=== PATIENT | female | born 1955 | race Caucasian/White ===

== ENCOUNTER 2018-04-08 08:22 | Emergency (ER) | payer OTHER ==
--- OUTSIDE RECORDS SUMMARY | 2018-04-08 08:30 | XMS REPORT | Continuity of Care Document ---
:1955 External Reference #:[id number] Author Name Tasia Montalvo MD Address [address] [place] [address] Care Team Providers Name Role Phone Tasia Montalvo MD Care Team Information Product Delivery Specialist Unavailable Payers Date Identification Numbers Payment Provider Subscriber Policy Number: [id number] Lifetime Benefit Solns Lola Aly PayID: [facility] [address] [address] [place] [address] Advance Directives Description No Information Available Problems Description No Information Family History Date Family Member(s) Observation Comments Father Parkinson's Disease : (age 93 Years) Father due to Parkinson's Mother Good Health First Daughter Good Health Social History Type Date Description Comments Sex Unknown Education Highest Level Completed Master's Degree Marital Status Lives With Spouse Diet Healthy, Well Balanced 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 Hand Dominance RIGHT-handed Abuse No history of abuse Hobbies Traveling Blood Donor Patient is not a blood donor ETOH Use Consumes 1 glass of wine per day Tobacco Use Start: Unknown Patient has never smoked Smoking Status Reviewed: 03/23/18 Patient has never smoked Allergies, Adverse Reactions, Alerts Description No Known Drug Allergies Medications Medication Date Status Form Strength Qnty SIG Indications Ordering Provider Vitamin D-3 Active Capsules 1000Unit 30caps 1 by Cortez Montalvo MD every day Multivitamin Active Tablets 90tabs 1 by Shelby Montalvo MD every day Immunizations CPT Code Status Date Vaccine Lot # [id number] Given 11/01/2017 Shingrix (Shingles) Zoster Vaccine HZV, Recombinant, Subunit, Adj [id number] Refused 01/27/2018 Flu Vaccine NOS Vital Signs Date Vital Result Comment 03/23/2018 11:07am Weight 159.00 lb Heart Rate 68 /min BP Systolic 112 mmHg BP Diastolic 68 mmHg Respiratory Rate 16 /min Height 68 inches 5'8" O2 % BldC Oximetry 98 % Ra BMI (Body Mass Index) 24.2 kg/m2 03/21/2017 10:49am Weight 166.00 lb Heart Rate 72 /min BP Systolic 102 mmHg BP Diastolic 60 mmHg Respiratory Rate 18 /min Height 68 inches 5'8" 03/17/16 BMI (Body Mass Index) 25.2 kg/m2 03/17/2016 11:07am Weight 167.00 lb Heart Rate 60 /min BP Systolic 110 mmHg BP Diastolic 60 mmHg Respiratory Rate 18 /min Height 68 inches 5'8" 03/17/16 BMI (Body Mass Index) 25.4 kg/m2 Results Test Date Facility Test Result H/L Range Note Laboratory test Lab [place] [facility] 1 finding 8 [phone] [facility] <SEE NOTE> [facility] test [facility] Pap Smear Thin SEE NOTE 2 finding 8 Prep Lipid [facility] Cholesterol 217 mg/dL High 50-199 3 7 Triglycerides 60 mg/dL 30-200 HDL 90 mg/dL High 35-85 4 Chol/ HDL Ratio 2.4 ratio Low 3.7-5.6 VLDL 12 mg/dL 2-29 LDL (Calc) 115 mg/dL High 20-99 5 Laboratory test 03/17/2016 [facility] Hepatitis C NONREACTIVE Nonreactive finding Virus Antibody Comprehensive 03[facility]17[facility]2016 [facility] Sodium 139 mmol/L 134-142 Metabolic (CMP) Potassium 4.0 mmol/L 3.5-5.2 Chloride 101 mmol/L 97-109 Carbon Dioxide 33 mmol/L 24-34 Glucose 83 mg/dL 70-105 BUN 12 mg/dL 6-26 Creatinine 0.7 mg/dL 0.5-1.4 Calcium 9.8 mg/dL 8.5-10.2 Total Protein 7.4 g/dL 6.0-8.0 Albumin 4.7 g/dL 3.6-4.9 Globulin 2.7 g/dL 2.0-3.5 A/G Ratio 1.7 Ratio 1.0-2.2 Total Bilirubin 0.7 mg/dL 0.1-1.3 Alkaline Phosphatase 55 U/L 24-140 Alt 19 U/L 3-42 Ast 21 U/L 8-42 Anion Gap 9 mmol/L 6-14 Denice Egfr >60 >60 6 Non Denice Egfr >60 >60 7 Laboratory test finding 03/17/2016 [facility] TSH 0.79 uIU/mL 0.35-4.94 CBC With Auto Diff 03/17/2016 [facility] WBC 5.9 K/uL 4.1-11.0 RBC 4.26 M/uL 4.00-5.40 Hemoglobin 13.0 gm/dL 12.0-16.0 Hematocrit 39.2 % 36.0-47.0 MCV 92.0 fL 80.0-97.0 MCH 30.6 pg 27.0-32.0 MCHC 33.2 g/dL 32.0-36.0 RDW 12.9 % 11.5-14.5 PLT Count 234 K/ul 140-400 Neutrophil 55.6 % 35.0-75.0 Lymphocyte 32.2 % 16.0-52.0 Monocyte 8.2 % 2.0-10.0 Eosinophil 3.5 % 0.0-5.0 Basophil 0.5 % 0.0-4.0 Abs Neutrophils 3.3 K/uL 2.1-8.0 Abs Lymphocytes 1.9 K/uL 0.8-5.5 Abs Monocytes 0.5 K/uL 0.1-1.0 Abs Eosinophils 0.2 K/uL 0.0-0.5 Abs Basophils 0.0 K/uL 0.0-0.3 1 [place] [address] Amplified Molecular High Risk HPV Test Patient Name:LOLA ALY Patient :1955 Ordering Physician:TASIA MONTALVO MD Accession Number [id number] Specimen(s) Received A: High Risk HPV Thin Prep Cervical / Endocervical Pap Smear - One Vial Other Case Numbers: [id number] Diagnosis RISK GROUPS RESULTS High Risk NEGATIVE Tested for HPV Types (16, 18, 31, 33, 35, 39, 45, 51, 52, 56, 58, 59, 66, 68) Reported: 03/24/2017 09:56 Electronically Signed Out By Yoli Woods shivam Mckenna 2 [facility]. [facility] [place] [address] CYTOLOGY REPORT Source of Specimen(s): Thin Prep Cervical / Endocervical Pap Smear - One Vial Date of Last Menstrual Period: 5 yrs ago Menstrual History: Post-menopausal Other Clinical Conditions: Last Pap Smear: 2013 normal HPV ASSAY REQUESTED Specimen Adequacy SATISFACTORY FOR EVALUATION PRESENCE OF ENDOCERVICAL/TRANSFORMATION ZONE COMPONENT General Categorization NEGATIVE FOR INTRAEPITHELIAL LESION OR MALIGNANCY Interpretation NEGATIVE FOR INTRAEPITHELIAL LESION OR MALIGNANCY Atrophy Comment HPV testing will be performed and a separate report will be issued. Reported: 03/23/2017 13:07 Electronically Signed Out By Sally CARTER(ASCP) lgs ICD9 Code: Z01.419 Unless otherwise specified, testing performed by [facility] [address] [address] 3 today 4 Per NCEP ATP III Guidelines: Results lower than 40 mg/dL are suggestive of increased risk for coronary artery disease. Results > or=to 60 mg/dL are considered a negative risk factor. 5 Per NCEP ATP III Guidelines: Normal Population <130 Patients with medical conditions: CHD/DM Optimal: <100 Borderline high: 130-159 High: 160-189 Very high: >189 6 Concerning GFR Guidelines for Americans: Normal function or mild renal disease, if clinically at risk: >/=60 mL/min Moderately decreased: 30-59 Severely decreased: 15-29 Renal failure: <15 7 Concerning GFR Guidelines: Normal function or mild renal disease, if clinically at risk: >/=60 mL/min Moderately decreased: 30-59 Severely decreased: 15-29 Renal failure: <15 Glomerular Filtration Rate (GFR) is estimated based on the MDRD equation, which assumes a steady state for creatinine as recommended by the National Kidney Disease Education Program in conjunction with the National Institutes of Health and the National Kidney Foundation. Clinical conditions in which it may be necessary to measure GFR by using clearance methods include extremes of age and body size, severe malnutrition or obesity, diseases of skeletal muscle, paraplegia or quadriplegia, vegetarian diet, rapidly changing kidney function, and calculation of the dose of potentially toxic drugs that are excreted by the kidneys. Procedures Date Code Description Status 03/23/2018 14526 Brief Emotional/Behav Assessment W/ Scoring Doc Per Completed Standard Inst 03/21/2017 11582 Measure Blood Oxygen Level Single Determination Completed 03/21/2017 69248366 Mammogram Completed 03/17/2016 10402 Bone Density Study (Dexa) Axial Skeleton Completed (Hips,Pelvis,Spine) 03/17/2016 681803340 Bone Mineral Density Test Completed 08/08/2013 46879797 Mammogram Completed 12/17/2010 31986607 Colonoscopy Completed Encounters Type Date Location Provider Dx Diagnosis Office Visit 03/21/2017 [facility] Tasia Montalvo MD Z01.419 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 (general) (routine) w/o abn findings Office Visit 03/17/2016 [facility] Tasia Montalvo MD Z00.00 Encntr for general 11:00a adult medical exam w/o abnormal findings Z13.220 Encounter for screening for lipoid disorders Z11.59 Encounter for screening for other viral diseases Z12.31 Encntr screen mammogram for malignant neoplasm of breast N95.1 Menopausal and female climacteric states R63.5 Abnormal weight gain Plan of Treatment Future Appointment(s):04/10/2018 9:25 am - Schedule, Laboratory at [facility]2019 10:30 am - Tasia Montalvo MD at [facility]03/23/2018 - Tasia Montalvo MDZ01.419 Encounter for gynecological examination (general) (routine)New Labs:[facility], Scheduled: 04/10/18Comments:pap with HPV testing done. If normal, will repeat in 1-5 years. will need an annual physical with breast exam.Follow up:fasting labs soon 1 year fye - no papZ13.31 Encounter for screening for depressionComments:screening for depression is negative PHQ-2=0Z12.31 Encounter for screening mammogram for malignant neoplasm ofNew Xrays:Mammogram Screening, Bilateral Incl CAD When Performe, Scheduled: 04/10/18Comments:schedule mammoFollow up:mammogram due now
[2018-04-08 08:34] VITALS: BP 123/68
--- NOTE | 2018-04-08 08:48 | UC ---
Shoulder Pain HPI - HPI Summary HPI Summary: Pt c/o left shoulder pain and decrease in ROM after slipping on ice last evening from standing height with left arm stretched out. - History of Current Complaint Chief Complaint: UCGeneralIllness Stated Complaint: LEFT ARM INJURY S/P FALL Time Seen by Provider: 04/08/18 08:30 Hx Obtained From: Patient ?: No Onset/Duration: Sudden Onset, Lasting Hours Timing: Constant Severity Initially: Moderate Severity Currently: Moderate Pain Intensity: 10 Character: Dull, Aching, Stiffness Aggravating Factor(s): Movement Alleviating Factor(s): Rest Associated Signs And Symptoms: Positive: Negative Related History: Dominant Hand Right, Immobility - Risk Factors Non-Orthopedic Risk Factor: Negative DVT Risk Factors: Negative Septic Arthritis Risk Factor: Negative - Allergies/Home Medications Allergies/Adverse Reactions: Allergies Allergy/AdvReac Type Severity Reaction Status Date / Time No Known Allergies Allergy Verified 01/06/16 10:09 PMH/Surg Hx/FS Hx/Imm Hx Previously Healthy: Yes - Surgical History Surgical History: Yes Surgery Procedure, Year, and Place: FALLOPIAN TUBES REMOVED - Family History Known Family History: Positive: Hypertension - Social History Occupation: Employed Full-time Lives: With Family Alcohol Use: Daily Alcohol Amount: glass of wine a night Substance Use Type: None Smoking Status (MU): Never Smoked Tobacco Have You Smoked in the Last Year: No Review of Systems All Other Systems Reviewed And Are Negative: Yes Constitutional: Positive: Negative Skin: Positive: Negative Eyes: Positive: Negative ENT: Positive: Negative Respiratory: Positive: Negative Cardiovascular: Positive: Negative Gastrointestinal: Positive: Negative Genitourinary: Positive: Negative Motor: Positive: Decreased ROM - left shouler Neurovascular: Positive: Negative Musculoskeletal: Positive: Arthralgia, Decreased ROM, Myalgia Neurological: Positive: Negative Psychological: Positive: Negative Is Patient Immunocompromised?: No Physical Exam Triage Information Reviewed: Yes Appearance: Pain Distress Vital Signs: Initial Vital Signs Temp 98.7 F 04/08/18 08:30 Pulse 80 04/08/18 08:30 Resp 18 04/08/18 08:30 BP 123/68 04/08/18 08:30 Pulse Ox 100 04/08/18 08:30 Vital Signs Reviewed: Yes Eye Exam: Normal ENT Exam: Normal Dental Exam: Normal Neck exam: Normal Respiratory Exam: Normal Cardiovascular Exam: Normal Musculoskeletal: Positive: Strength Limited @ - left shoulder, ROM Limited @ - left shoulder Neurological Exam: Normal Psychological Exam: Normal Skin Exam: Normal Diagnostics - Radiology No standard instances Radiology Interpretation Completed By: Radiologist - IMPRESSION: FRACTURE OF THE SURGICAL NECK OF THE LEFT HUMERUS. Shoulder Course/Dx - Course Course Of Treatment: Non displaced fracture: IMPRESSION: FRACTURE OF THE SURGICAL NECK OF THE LEFT HUMERUS. - Differential Dx/Diagnosis Differential Diagnosis/HQI/PQRI: Dislocation, Fracture (Closed) Provider Diagnosis: Fracture of neck of left humerus Discharge - Sign-Out/Discharge Documenting (check all that apply): Patient Departure All imaging exams completed and their final reports reviewed: Yes - Discharge Plan Condition: Stable Disposition: HOME Prescriptions: traMADol TAB* [Ultram*] 50 mg PO Q12H PRN #10 tab MDD 2 PRN Reason: Pain Patient Education Materials: Proximal Humerus Fracture (ED) Referrals: Bhargav Coker MD [Medical Doctor] - As Soon As Possible Tasia Alcocer MD [Primary Care Provider] - - Billing Disposition and Condition Condition: STABLE Disposition: Home
== END 2018-04-08 09:32 | disposition home or self-care (01) ==
LOC: UCCORT 08:22
DX: S42.212A Unspecified displaced fracture of surgical neck of left humerus, initial encounter for closed fracture (principal); W00.0XXA Fall on same level due to ice and snow, initial encounter; Y92.9 Unspecified place or not applicable
CPT/HCPCS: 99213; G0463